=== PATIENT | male | born 1955 | race Caucasian/White ===

== ENCOUNTER → 2025-05-22 11:05 | Outpatient (REF) | payer OTHER, SELFPAY ==
--- NOTE | 2025-05-22 15:15 | EEG.RPT ---
Electroencephalogram Report
Recording
Date of EE05/22/25
Type of EEG: Routine
Length of EEG recordin minutes
Done with Video Recording: No
Patient Status: Outpatient
Recording Conditions: Awake, Drowsy and Asleep
Hyperventilation Performed: No
Photic Stimulation Performed: Yes
Report
LESS THAN 1 HOUR REPORT
LESS THAN 1 HOUR EEG INTERPRETATION:
Mildly abnormal EEG for age due to low amplitude
CLINICAL CORRELATION:
This study was suggestive of diffuse cortical dysfunction without focal abnormality. No seizures were recorded.
Clinical correlation is advised.
METHODS:
A 21 channel digitized electroencephalogram (EEG) was performed. The 10/20 international system of electrode placement was used with ECG and lateral/vertical eye movements recorded. Video was recorded. The [employer] quantitative EEG analysis system
was performed.
QUALITY OF STUDY:
Good
ELECTROENCEPHALOGRAPHER IMPRESSION(S):
Background
Low amplitude unorganized anterior-posterior voltage gradient of alpha maximal activity, frequently theta.
There were no significant asymmetries of background activity noted.
Sleep
Drowsiness demonstrated
Stage I sleep was characterized by vertex waves
Stage II sleep was characterized by sleep spindles and K complexes
Hyperventilation
Failed to produce activation of the record
Photic Stimulation
Failed to activate the record
ECG
Unremarkable
== END ==
LOC: EEG 11:05
PROVIDERS: ATTENDING PHYSICIAN Psychiatry & Neurology Neurology; FAMILY PHYSICIAN Internal Medicine
DX: G31.84 Mild cognitive impairment of uncertain or unknown etiology (principal)
CPT/HCPCS: 95816

== ENCOUNTER 2025-05-25 21:33 | Emergency (ER) | payer OTHER, SELFPAY ==
[2025-05-25 21:36] VITALS: BP 131/70
[2025-05-25 21:45] VITALS: BMI 28.6
[2025-05-25] MEDS: ADACEL 0.5 ML IM (22:22)
--- NOTE | 2025-05-25 22:49 | ED.GENMED ---
History of Present Illness
General
Chief Complaint: Skin Problem
Source: patient and spouse
Time Seen by Provider: 05/25/25 21:57
History of Present Illness
History of Present Illness:
Note:
CHIEF COMPLAINT(S)
Laceration to left index finger.
HISTORY OF PRESENT ILLNESS
The patient is a 70-year-old male who presented with a laceration to his left index finger sustained the previous night. The patient reported that the injury occurred while attempting to slice open a bag with a knife, resulting in a cut on the
middle aspect of the distal interphalangeal (DIP) joint. The patient described the wound as superficial, approximately one centimeter in length, with minimal bleeding. The edges of the laceration were noted to be well-approximated. The patient
expressed concern about wound healing, especially since the injury is located at the joint and mentioned concerns about reopening the wound with daily activities. The patient is unsure of his last tetanus immunization and agreed to an update.
PHYSICAL EXAM
General: Alert, no acute distress.
Skin: Warm, dry.
Head: Normocephalic, atraumatic.
Neck: Supple, trachea midline.
Eye, Ears, Nose, Mouth, and Throat: Oral mucosa moist.
Cardiovascular: Normal peripheral perfusion, No edema.
Respiratory: Respirations are non-labored.
Gastrointestinal: Abdomen nondistended.
Back: Normal range of motion, Normal alignment.
Musculoskeletal: There is a superficial laceration measuring approximately one centimeter on the middle aspect of the left index finger at the distal interphalangeal joint. The edges are well-approximated with minimal bleeding. Normal range of
motion, normal strength.
Neurological: Alert and oriented to person, place, time, and situation, No focal neurological deficit observed.
Psychiatric: Cooperative, appropriate mood & affect.
PLAN
1. Update tetanus immunization as the patient is unsure of the last administration.
2. Irrigate the laceration and apply tissue adhesive followed by a splint to minimize movement and promote healing.
3. Educate the patient on wound care to prevent reopening during daily activities.
DIFFERENTIAL DIAGNOSIS
The Differential Diagnosis includes, in no particular order, and is not limited to:
1. Laceration
2. Fingertip injury
3. Abrasion
4. Skin tear
5. Joint injury
6. Sprain
7. Superficial infection
8. Contusion
9. Nail bed injury
10. Tendon injury.
Disposition:
SUMMARY OF ENCOUNTER
The patient presented to the emergency department with a superficial laceration on the left index finger at the distal interphalangeal joint, sustained the previous night while slicing open a bag. The wound was described as minimal bleeding with
well-approximated edges. The laceration was cleaned, and a tissue adhesive was applied, followed by the application of a splint to minimize movement and promote healing. Tetanus immunization was updated.
DISPOSITION
Discharge.
ASSESSMENT
Laceration to the left index finger at the distal interphalangeal joint.
PLAN
Update tetanus immunization, apply tissue adhesive, and splint for the laceration. Educate the patient on wound care to prevent reopening during daily activities. Recommend outpatient follow-up if needed.
PATIENT EDUCATION AND COUNSELING
The patient was educated on proper care of the laceration, advice on keeping the finger immobile to prevent reopening of the wound, and signs of infection to watch for.
FOLLOW-UP INSTRUCTIONS
The patient was instructed to follow up on an outpatient basis if any concerns or complications arise.
MEDICATION RECONCILIATION
Tetanus vaccine administered.
MEDICAL DECISION MAKING
-Complexity of Data Reviewed: Differential diagnosis considered included laceration, fingertip injury, abrasion, skin tear, joint injury, sprain, superficial infection, contusion, nail bed injury, tendon injury.
Category 1: No additional tests ordered.
-Risk: Prescription medication was prescribed and delivered via wound care (tissue adhesive and splint application).
DIAGNOSIS
Laceration of finger, unspecified, initial encounter (Q86.589X).
Past History
Past History
ED Past Medical History: None
ED Past Surgical History: Other (Hernia )
Social History
Tobacco: Non-smoker
Alcohol: Occasional
Drug: None
Personal:
Living: with family
Employment: Employed
Phy Exam
Physical Exam
Physical Exam:
.
Course
Orders/Labs/Results
Orders:
Orders
05/25/25 22:14
Tetanus/Diphth/Acelpertussis [Adacel] 0.5 ml IM .ONCE ONE
Vital Signs
Initial and Last Documented VS:
Initial Vital Signs
Temp Pulse Resp BP Pulse Ox
98.2 F 60 18 131/70 94
05/25/25 21:36 05/25/25 21:36 05/25/25 21:36 05/25/25 21:36 05/25/25 21:36
Last Documented Vital Signs
Temp Pulse Resp BP Pulse Ox
98.2 F 60 18 131/70 94
05/25/25 21:36 05/25/25 21:36 05/25/25 21:36 05/25/25 21:36 05/25/25 21:36
Procedures
Laceration Closure
Left Finger:
Status of Wound: clean
Size of Wound in cm: 1
Description of Wound Edges: sharp and flap-well vascularized
Preparation: cleaned with saline
Revision/Debridement: routine- no revision
Wound exploration: explored to base- no FB
Type of Closure: Dermabond-skin glue
Splinting/Sling Placement
Right Finger(s):
Procedure completed by: Dr Roa
Pre-splint extermity exam: neurovascular intact
Type of splint: aluminium finger
Splint material: aluminum-foam
Normal distal neurovascular exam?: Yes
*Pulse Oximetry
SaO2: 94
Oxygen Mode of Delivery: Room air
Patient hypoxic: no
*Critical Care Note
Total Time (30-74mins, 75-104mins- exclusive of procedures): Not Applicable
ED Attending Note
-
Portions of this chart may have been created with voice recognition software.� Occasional wrong word or��sound alike� substitutions may have occurred due to the inherent limitations of voice recognition software.
Discharge Plan
Departure
Patient Disposition: Home (Routine Discharge)
Date of Disposition: 05/25/25
Time of Disposition: 22:49
Patient with high blood pressure during this ER visit?: No
Discharge Problem:
Finger laceration
Instructions: Skin glue for minor cuts
Prescriptions:
No Action
guaifenesin 200 MG/10 ML liquid
10 ml PO
ibuprofen 200 MG tablet
600 mg PO Q4HPRN PRN (Reason: pain)
levofloxacin 500 MG tablet
750 mg PO DAILY
dextromethorphan-guaifenesin [Mucinex DM] 1 TABLET tablet extended release 12 hr
1 tab PO
Referrals:
Trey Fuller DO [Family Provider, Internal Medicine]
Activity Restrictions/Additional Instructions:
Use splint for the next 5 days. Return immediately for redness, drainage from the wound, fevers or any other concerns.
Interventions
Interventions:
*Risk Screen - Suicide Last Done: 05/25/25 21:36
*General Assessment Last Done: 05/25/25 21:45
*Neglect/Abuse Screening Last Done: 05/25/25 21:36
*ED- Fall Risk Assessment Last Done: 05/25/25 21:45
*ED COVID-19 Vaccine History Last Done: 05/25/25 21:45
ED-Skin Assessment Last Done: 05/25/25 21:47
Discharge Date and Time
Print Language: GHANAIAN
== END 2025-05-25 22:58 | disposition home or self-care (01) ==
LOC: EMR 21:33
PROVIDERS: EMERGENCY PHYSICIAN Emergency Medicine; FAMILY PHYSICIAN Internal Medicine
DX: S61.211A Laceration without foreign body of left index finger without damage to nail, initial encounter (principal); Z23 Encounter for immunization; W26.0XXA Contact with knife, initial encounter
CPT/HCPCS: 99282; 12001; 90471; 90715